=== PATIENT | male | born 1985 | race Caucasian/White ===

== ENCOUNTER 2023-11-24 21:57 | Emergency (ER) | payer SELFPAY ==
--- NOTE | ~2023-11-24 | CT_ITS ---
EXAMINATION: CT cervical spine wo con DATE: 11/24/2023 23:47 INDICATION: Fall with head injury TECHNIQUE: Computed tomography (CT) of the cervical spine was performed without intravenous contrast. Automated exposure control and iterative reconstruction technique were employed. The dose-length pro duct was 280.06 mGy-cm. COMPARISON: None FINDINGS: Mild cervicothoracic dextrocurvature. Sagittal alignment is normal. Vertebral body heights are normal . No fracture. Multilevel mild disc height loss from C2-C3 through C6-C7 disc bulges resulting in mil d central canal stenosis at C3-C4 through C6-C7. Multilevel mild uncovertebral and facet osteoarthrit is there is continued minimal to mild bilaterally neural foraminal stenosis at multiple levels throug hout the cervical spine. Sagittal hematoma in the left supraclavicular region underlying the left tra pezius muscle resulting from the displaced comminuted left clavicle fracture better appreciated on pr ior left shoulder radiographs and chest CT. Cervical soft tissues are otherwise unremarkable. IMPRESSION: 1. Mild cervical spondylosis with no acute osseous abnormality. Reviewed, dictated and finalized at location A.
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
--- NOTE | ~2023-11-24 | XR_ITS ---
EXAMINATION: XR shoulder LT min 2V DATE: 11/24/2023 22:35 INDICATION: Left shoulder swelling post injury TECHNIQUE: AP, AP oblique externally rotated and transscapular Y views of the left shoulder were obta ined. COMPARISON: None FINDINGS: Mildly comminuted mid diaphyseal fracture of the left clavicle with 3 cm long central segmental fract ure fragment oriented vertically between the proximal and distal fragments. There is a 2 cm caudal di splacement and 1.5 mm overriding of the lateral fragment relative to the medial fragment. Normal alig nment and joint spaces of the left acromial clavicular and glenohumeral joints. No other fractures id entified. Visualized portions of the lungs are clear. IMPRESSION: Displaced comminuted mid diaphyseal fractures to the left clavicle. Reviewed, dictated and finalized at location A.
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
[2023-11-24 22:01] VITALS: BP 157/96; PULSE 96; RESP 20; TEMP 36.4; O2SAT 98
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
[2023-11-24] MEDS: ACETAMINOPHEN 500 MG TABLET 1000 MG PO (23:32)
[2023-11-24] MEDS: IBUPROFEN 400 MG TABLET 800 MG PO (23:32)
--- NOTE | 2023-11-25 01:34 | PC.NURSE ---
This Rn went to go clean pt room after discharge and noticed pt left behind his arm sling. This RN contacted pt via his cell phone and made sure pt was aware he left without it. Pt was advised by RN to either come back and get it or go purchase one by a near by store. Pt states he wants to come back and pick it up in the morning from the ED. This Rn put the sling with a pt telecommunications administrator it and took it to de icer Laurie to give to nurse for next shift to give to him.
== END 2023-11-25 01:38 | disposition home or self-care (01) ==
PROVIDERS: Emergency Provider Physician Assistant
DX: S42.022A Displaced fracture of shaft of left clavicle, initial encounter for closed fracture (principal); S80.212A Abrasion, left knee, initial encounter; M47.812 Spondylosis without myelopathy or radiculopathy, cervical region; R93.7 Abnormal findings on diagnostic imaging of other parts of musculoskeletal system; V28.09XA Other motorcycle driver injured in noncollision transport accident in nontraffic accident, initial encounter
CPT/HCPCS: 70450; 71250; 72125; 73030; 99284; A4565; A9270